=== PATIENT | male | born 2000 ===

== ENCOUNTER 2024-10-19 06:28 | Emergency (ER) | payer SELFPAY ==
[2024-10-19 06:39] VITALS: BP 138/66; PULSE 83; RESP 18; TEMP 36.9; O2SAT 98; BMI 38.4
--- NOTE | 2024-10-19 07:18 | ED.ABDPAIN ---
HPI - Abdominal Pain General Chief Complaint: Abdominal Pain Stated Complaint: abd pain/pain in rear Time Seen by Provider: 10/19/24 07:05 Source: patient Mode of arrival: Ambulatory History of Present Illness HPI narrative: 23-year-old male complains of 2 weeks duration of protruding rectal tissue, somewhat uncomfortable, no bleeding associated. No fevers or chills or draining wounds. No similar symptoms before. He has not tried any anti hemorrhoidal treatments, he has not sought care for this thus far. He has frequent hard stools. No black or red stools. Related Data Previous Rx's Medication Instructions Recorded bisacodyl 5 mg tablet,delayed 5 mg PO BID 2 days #10 tabs 10/19/24 release Allergies Allergy/AdvReac Type Severity Reaction Status Date / Time No Known Drug Allergies Allergy Verified 10/19/24 06:39 Exam Narrative Exam Narrative: GENERAL: Well-developed patient, in mild distress. HEAD: Atraumatic. Normocephalic. EYES: Pupils equal round and reactive. Extraocular motions intact. No scleral icterus. No injection or drainage. ENT: Nose without bleeding, purulent drainage. Throat without erythema, tonsillar hypertrophy or exudate. Airway patent. NECK: Trachea midline. Non tender CARDIOVASCULAR: Regular rate and rhythm without murmurs, gallops, or rubs. RESPIRATORY: Clear to auscultation. Breath sounds equal bilaterally. No wheezes, rales, or rhonchi. GASTROINTESTINAL: Abdomen soft, non-tender, nondistended. External inspection perirectal area with hemorrhoidal right-sided, not obviously thrombosed. No perirectal tenderness or masses or draining wounds, no erythema or crepitance. EXTREMITIES: No edema or joint tenderness. BACK: Nontender without deformity or crepitance. No flank tenderness. NEURO: AOx3. Motor functions grossly nonfocal SKIN: No rash or erythema of visible areas Initial Vital Signs Initial Vital Signs: Vital Signs Temperature 98.5 F 10/19/24 06:39 Pulse Rate 83 10/19/24 06:39 Respiratory Rate 18 10/19/24 06:39 Blood Pressure 138/66 10/19/24 06:39 Pulse Oximetry 98 10/19/24 06:39 Oxygen Delivery Method Room Air 10/19/24 06:39 Course Orders Ordered: ED Orders 10/19/24 06:42 Consult to [facility] [place] - Plant Production Manager Stat Vital Signs Vital signs: Vital Signs - 8 hr 10/19/24 06:39 10/19/24 08:21 Temperature 98.5 F 98.1 F Pulse Rate 83 80 Respiratory Rate 18 14 Blood Pressure 138/66 132/74 Pulse Oximetry 98 98 Oxygen Delivery Method Room Air Room Air MDM - Abdominal Pain MDM Narrative Medical decision making narrative: 23-year-old male with hemorrhoids, not obviously thrombosed, no treatment thus far, we discussed Sitz baths, topical preparation H oazu-gfr-ldsgidi cream since nothing has been tried so far, also perhaps rnfc-xkj-aoyrald bisacodyl stool softener, Metamucil for increased fiber bulk in diet. Trial of conservative medical treatment. Local surgery office contact information also provided if patient would like to pursue endoscopy and further internal evaluation, or later hemorrhoidectomy surgical option consultation. Printed bisacodyl prescription given, as patient anticipates buying hmzc-rki-pylcbrf medications, to help facilitate identified in the hsil-nhd-tshcefk product. Encouraged to drink plenty of fluids and stay well hydrated. Discharged home with family. Discharge Plan Departure Patient Disposition: Home Clinical Impression: Hemorrhoid Activity Restrictions/Additional Instructions: Two weeks duration of perirectal discomfort, with protrusion of soft mass, on examination this looks to be hemorrhoidal tissue. On palpation around the perianal area there did not seem to be areas of induration, no obvious perianal abscess on examination at this time. Reported hard stools, which can be a risk factor for perhaps developing hemorrhoids, or uncomfortable with passing the hard stool past hemorrhoids. It is possible there could be some internal component of the hemorrhoid that is thrombosed, sometimes that can be treated medically with topical steroids and Sitz baths and warm water, but sometimes has to be incised open. Persisting hemorrhoidal discomfort can be surgically treated at some point as well, hemorrhoidectomy is a potential surgical option. Also sometimes surgeons might do endoscopy to look further up to make sure there are no internal lesions of other concern. Contact information given for local general surgeons, if you want to pursue consultation in follow up. For now consider trying pgrs-vkr-fdahgpv preparation H, applying the steroid cream to the area 2-3 times daily for the next week or so. Consider trying bisacodyl/Colace stool softener for the next couple of days, perhaps adding Metamucil to your diet to increase the bulk fiber. Follow up with your regular provider next week if symptoms persist. Return to this/nearest emergency department for any change worsening symptoms or any concerns prior Prescriptions: New bisacodyl 5 mg tablet,delayed release (DR/EC) 5 mg PO BID 2 Days Qty: 10 0RF Referrals: Bakari Stanley MD [Physician] - Thomas Sanders MD [Physician] - Stand Alone Forms: Patient Portal/API/Survey
[2024-10-19 08:21] VITALS: BP 132/74; PULSE 80; RESP 14; TEMP 36.7; O2SAT 98
== END 2024-10-19 08:21 | disposition home or self-care (01) ==
PROVIDERS: Emergency Provider Emergency Medicine
DX: K64.9 Unspecified hemorrhoids (principal)
CPT/HCPCS: 99281